=== PATIENT | female | born 1995 | race Caucasian/White ===

== ENCOUNTER 2017-06-24 14:03 | Emergency (ER) | payer OTHER ==
[2017-06-24 14:24] VITALS: BP 120/71
--- NOTE | 2017-06-24 14:32 | ERNOTE ---
ENT HPI Presenting Symptoms: dental pain Time Seen by Provider: 06/24/17 14:06 Exam Limitations: no limitations - Immun/Allergies/Home Medications Immunizations: IMMUNIZATION HX Immunizations Up to Date Yes Allergies/Adverse Reactions: Allergies Allergy/AdvReac Type Severity Reaction Status Date / Time codeine Allergy Verified 06/24/17 14:11 Penicillins Allergy Verified 06/24/17 14:11 tramadol Allergy Verified 06/24/17 14:11 sertraline [From Zoloft] AdvReac Verified 06/24/17 14:11 Home Medications: HOME MEDICATIONS Escitalopram Oxalate [Lexapro] 10 mg PO DAILY 06/24/17 [Last Taken Unknown] HYDROcodone/ACETAMINOPHEN [[place] 5-325] 1 each PO Q4H PRN #12 tablet 06/24/17 [ Last Taken Unknown] clonazePAM [Klonopin] 1 mg PO TID PRN 06/24/17 [Last Taken Unknown] - History of Present Illness Narrative: Patient had a tooth extracted in her left upper jaw in the in [place] a week ago. She had immediate pain that improved somewhat but then worsened again over the last couple of days in her left upper jaw radiating to her left ear and throat. She has been taking ibuprofen without relieve, norco given post extraction helped some. Review of Systems - Review of Systems Constitutional: Absent: recent illness, fever ENT: Present: ear pain, sore throat. Absent: nose congestion, nasal drainage Respiratory: Absent: shortness of breath Cardiology: Absent: chest pain Gastrointestinal/Abdominal: Present: nausea. Absent: vomiting, diarrhea, abdominal pain Genitourinary: Present: no symptoms reported Skin: Absent: rash Neurological: Absent: headache - Patient's Past Medical History Patient History - Medical: Anxiety, Depression Patient History - Cardiac/Respiratory: No pertinent hx Patient History - Cancer: No Hx of Cancer Patient History - Surgical Procedures: Appendectomy, T & A - Social History Smoking Status: Current every day smoker Cigarettes Packs Per Day: 0.5 Have you smoked in the past 12 months: Yes - Immunizations Immunizations Up to Date: Yes Hx Pneumococcal Vaccination: No History of Influenza Vaccine: No Physical Exam - Physical Exam General Appearance: Present: wd/wn, alert, no apparent distress, anxious Head Exam: Present: normal inspection Ears, Nose, Throat: Present: normal ENT inspection, normal pharynx, other - erupting left upper wisdom tooth, tender gum, no swelling, no erythema Neck: Present: normal inspection. Absent: lymphadenopathy (R), lymphadenopathy (L) Respiratory: Present: no respiratory distress, normal breath sounds, no accessory muscle use, lungs clear Cardiovascular/Chest: Present: regular rate, rhythm Neurological Exam: Present: alert, oriented, normal mood/affect Skin Exam: Present: normal color, warm/dry ED Progress - Vital Signs Patient's Vital Signs:: I have reviewed the patient's vital signs. Vital Signs: Vital Signs 06/24/17 14:03 Temperature 37.4 C Pulse Rate 108 H Respiratory 14 Rate Blood Pressure 121/74 O2 Sat by Pulse 98 Oximetry - Progress/Reassessment Chief Complaint: Dental Problem Departure Clinical Impression: Tooth ache - Departure Disposition: Home self-care Condition: Good Additional Instructions: It seems that the pain is caused by your wisdom tooth call your dentist for follow up Prescriptions: HYDROcodone/ACETAMINOPHEN [[place] 5-325] 1 each PO Q4H PRN #12 tablet PRN Reason: Pain
== END 2017-06-24 14:30 | disposition home or self-care (01) ==
LOC: ER 14:03
DX: K08.89 Other specified disorders of teeth and supporting structures (principal); F17.210 Nicotine dependence, cigarettes, uncomplicated; F41.9 Anxiety disorder, unspecified; F32.9 Major depressive disorder, single episode, unspecified